=== PATIENT | female | born 1955 | race Caucasian/White ===

== ENCOUNTER → 2016-07-08 | Day surgery (SDC) | payer BC ==
[~2016-07-08] MED LIST: BUPIVACAINE HCL PF 0.5% 30 ML VIAL ONE; CLINDAMYCIN PHOS 600 MG/4 ML VIAL ONE; LACTATED RINGER'S 1000 ML INJ 1,000 ML ONE; MEPERIDINE HCL 25 MG/ML VIAL ONE; MIDAZOLAM HCL 2 MG/2 ML VIAL ONE; ONDANSETRON HCL 4 MG/2 ML VIAL IV PUSH ONE; PROPOFOL 200 MG/20 ML AMP IV ONE; SODIUM CHLORIDE 0.9% 100 ML ADDBAG IV ONE; Z.0.NO CURRENT MEDS
--- NOTE | 2016-07-10 17:03 | MP ---
cc: MELISSA JOHNSON DPM DATE OF SURGERY July 08, [address] Tracie Johnson MILITARY PERSONNEL SPECIALIST None PREOPERATIVE DIAGNOSIS 1. Right foot painful hardware. 2. Right foot hallux rigidus. POSTOPERATIVE DIAGNOSIS 1. Right foot painful hardware. 2. Right foot hallux rigidus. PROCEDURES PERFORMED 1. Right foot hardware removal. 2. First MPJ arthrodesis with bone block PATHOLOGY SENT None. ANESTHESIA General HEMOSTASIS Pneumatic ankle tourniquet at 250 mmHg for 123 minutes ESTIMATED BLOOD LOSS Less than 20 mL MATERIALS USED Tricortical bone graft Arthrex plate and screw and one Arthrex 3-0 cannulated screw, 3-0 Monocryl, 3-0 Prolene INJECTABLES 10 mL of 0.5% Marcaine plain COMPLICATIONS None INDICATIONS Ms. Aparicio is a 61-year-old female patient who had a hemiimplant for first metatarsal-phalangeal osteoarthritis. She stated that the implant gave her no relief and over time she began to lose more and more mobility in the joint and have more and more pain. I explained to her that the ray is already short and removing the implant would shorten it. If unable to achieve proper length with a fusion, she may need a bone block inserted. The patient was agreeable to this plan. Hesitation to surgery due to smoking as well as the extended period of non weightbearing. The patient states she practiced be non-weightbearing with a walker at home and also has crutches. She feels very comfortable with this and she states that he did quit smoking after our first conversation and will occasionally have one cigarette at the most. She is confident she can remain non smoking during her postoperative time. The consent was signed. The procedure was explained. No guarantees were given, PROCEDURE IN DETAIL Under mild sedation, the patient was brought to the operating room, placed on the operating table placed in supine position. Following IV sedation, pneumatic ankle tourniquet was applied around the right ankle. The foot was then scrubbed, prepped and draped in the usual aseptic manner. Attention was directed to the dorsal medial aspect of the first metatarsal-phalangeal joint where a linear longitudinal incision was created through a previous scar. It was deepened through skin and subcutaneous tissues with care being taken to identify and retract any vital neurovascular structure. There was a thick layer scar tissue which had to be incised and then excised. The implant was easily identified. However the joint space very tight and challenging to remove the implant. A rongeur was used to remove some of the overlying bone that had began to grow around, most of which was plantarly. After approximately 20-30 minutes, I was able to free and remove the implant with minimal disruption to the healthy cortex of the bone. It was then visualized under fluoroscopy and noted that the first ray would be nearly 10-12 mm short if fused in situ. Decision was made to use a cadaver bone wedge. The remaining cartilage of the metatarsal head was reamed using the Arthrex reamers. It was then retrograde drilled with a 0.062 K-wire. Decision was then made to use the saw to provide a flat edge to the metatarsal head. The area was then flushed with copious amounts of sterile saline and measurements were made in order to select the proper sized bone implant. Tricortical wedge selected and placed into the deficit. Some re-modeling was required both of the implant as well as the phalanx in order to provide the most coaptivity on both sides. It was then temporarily held in place with a 0.062 K-wire. Then a cannulated 3-0 screw was inserted from the proximal medial first metatarsal through the bone graft and out the distal lateral aspect of the phalanx. Minimal compression. The screw was used more for stabilization. This was then visualized under fluoroscopy. The alignment was noted to be close to anatomical in the length as well. The dorsal aspect of all three bones were planed in order to allow flush fit of the plate. A six-hole plate was selected. An assortment of locking and nonlocking screws were applied accordingly. This was again confirmed under fluoroscopy. Hardware screws and hardware were noted to be in excellent alignment and of appropriate size. The incision was again flushed with copious amounts of sterile saline. Deep and subcutaneous tissues were closed with 3-0 Monocryl, skin was closed with 3-0 Prolene, 10 mL of 0.5% Marcaine plain were injected around the incision site. Pneumatic ankle tourniquet was released. There was a prompt hyperemic response to all digits of the right foot. A sterile dressing of Adaptic, 4x4s and a very well-padded posterior splint were applied. The patient tolerated the procedure and the anesthesia well. She will recover in the PACU for a period of time before being discharged home with written and oral postoperative instructions. Melissa BANERJEE /10:12 AM /4:38 PM
== END | disposition home or self-care (01) ==
LOC: ESDC 06:29
PROVIDERS: ATTEND Podiatrist Foot & Ankle Surgery
DX: T84.84XA Pain due to internal orthopedic prosthetic devices, implants and grafts, initial encounter (principal); M20.21 Hallux rigidus, right foot; E11.9 Type 2 diabetes mellitus without complications; Z79.4 Long term (current) use of insulin
CPT/HCPCS: 01480; 20680; 20900; 28750; 73630; 76000; 82948; C1713; J2175; J2250; J2405; J3010; J7120